=== PATIENT | male | born 1995 | race Caucasian/White ===

== ENCOUNTER 2018-06-04 16:18 | Emergency (ER) | payer SELFPAY ==
[~2018-06-04] VITALS: Ht 175.3 cm; Wt 115.7 kg
[2018-06-04 16:50] VITALS: Ht 175.3 cm; Wt 115.7 kg
[2018-06-04 19:39] VITALS: BP 141/88
== END 2018-06-04 19:39 | disposition home or self-care (01) ==
LOC: ED 16:18
DX: S93.401A Sprain of unspecified ligament of right ankle, initial encounter (principal); X58.XXXA Exposure to other specified factors, initial encounter; Y93.89 Activity, other specified; Y92.89 Other specified places as the place of occurrence of the external cause; Y99.8 Other external cause status

== ENCOUNTER 2019-04-23 09:30 | Emergency (ER) | payer MEDICAID ==
[~2019-04-23] VITALS: Ht 175.3 cm; Wt 119.7 kg
[2019-04-23 09:37] VITALS: BP 146/88; Ht 175.3 cm; Wt 119.7 kg
== END 2019-04-23 10:44 | disposition home or self-care (01) ==
LOC: ED 09:30
DX: H10.33 Unspecified acute conjunctivitis, bilateral (principal); H66.93 Otitis media, unspecified, bilateral